=== PATIENT | female | born 1935 | race African-American/Black ===

== ENCOUNTER 2018-03-01 14:37 | Inpatient (IN) | payer MEDICARE, MEDICAID ==
[~2018-03-01] VITALS: Ht 162.6 cm; Wt 63.0 kg
[~2018-03-01 14:37] MED LIST: AMLO10TA80 PO; ATOR40TA70 PO; CHOL100046 PO; CLOP75TA33 PO; DIPH25CA83 PO; GABA-531 PO; P50 PO; SITA100T11 PO
[2018-03-01 16:26] LABS: BASOPHILS % 0.1 % (0.0-2.0); EOSINOPHILS % 0.1 % (0.0-5.0); HEMATOCRIT. 38.9 % (36.0-48.0); HEMOGLOBIN. 12.5 g/dL (12.0-16.0); LYMPHOCYTES % 7.5 % (20.0-50.0); MEAN CORPUSCULAR HEMOGLOBIN 26.7 pg (28.0-32.0); MEAN CORPUSCULAR VOLUME 83.3 fL (81.0-99.0); MEAN PLATELET VOLUME 7.5 fl (7.4-10.4); MONOCYTES % 2.7 % (2.0-8.0); NEUTROPHILS % 89.6 % (40.0-76.0); PLATELET 288 x1000/uL (130-400); RED BLOOD CELL COUNT 4.67 mill/uL (4.2-5.4); RED CELL DISTRIBUTION WIDTH 15.9 % (11.6-14.6)
[2018-03-01 16:32] LABS: CHLORIDE 111 mEq/L (98-107); INR 1.1; PROTHROMBIN TIME 11.2 sec (9.1-11.1)
[2018-03-01] MEDS ORDERED: SODIUM CHLORIDE 0.9% 1000ML BAG (SEPSIS BOLUS) IV ONE (18:00)
[2018-03-01 19:15] LABS: CLARITY URINE CLOUDY (CLEAR); COLOR URINE DARK YELLOW (YELLOW); KETONES URINE TRACE (NEGATIVE); LEUKOCYTE ESTERASE URINE TRACE (NEGATIVE); NITRITE URINE NEGATIVE (NEGATIVE); OCCULT BLOOD URINE 2+ (NEGATIVE); PH URINE 5.5 (4.5-8.0); PROTEIN URINE 1+ (NEGATIVE); SPECIFIC GRAVITY URINE 1.025 (1.005-1.030)
[2018-03-01] MEDS ORDERED: NITROGLYCERIN 0.4MG TABLET SL SL PRN (19:15)
[2018-03-01] MEDS ORDERED: TRAMADOL 50MG TABLET PO PRN (19:15)
[2018-03-01] MEDS ORDERED: IPRATROPIUM/ALBUTEROL 0.5-3(2.5)MG/3ML NEB INH PRN (19:15)
[2018-03-01] MEDS ORDERED: ACETAMINOPHEN 325MG TABLET PO PRN (19:15)
[2018-03-01] MEDS ORDERED: DEXTROSE 50% WATER 50ML SYRINGE IV PRN (19:15)
[2018-03-01] MEDS ORDERED: DIPHENHYDRAMINE 50MG/ML VIAL IV PRN (19:15)
[2018-03-01] MEDS ORDERED: NA PHOS,M-B/NA PHOS,DI-BA ENEMA 118ML PR PRN (19:15)
[2018-03-01] MEDS ORDERED: MAGNESIUM/ALUMINUM HYDROXIDE/SIMETHICONE 30ML UDC PO PRN (19:15)
[2018-03-01] MEDS ORDERED: GUAIFENESIN 200MG/10ML SUGAR FREE UDC PO PRN (19:15)
[2018-03-01] MEDS ORDERED: ONDANSETRON HCL 4MG/2ML VIAL IV PRN (19:15)
[2018-03-01] MEDS ORDERED: CLONIDINE 0.1MG TABLET PO PRN (19:15)
[2018-03-01] MEDS ORDERED: DOCUSATE SODIUM 100MG CAPSULE PO PRN (19:15)
[2018-03-01] MEDS ORDERED: ZOLPIDEM TARTRATE 5MG TABLET PO PRN (21:00)
[2018-03-01] MEDS: BLOOD SUGAR DIAGNOSTIC STRIP TEST SCH (21:00)
[2018-03-01] MEDS: INSULIN LISPRO 100 UNITS/ML SUBCUT SCH (21:00)
[2018-03-01] MEDS: SODIUM CHLORIDE 0.9% 1,000 ML IV SCH (21:24)
[2018-03-01] MEDS ORDERED: ONDANSETRON 4MG ODT PO PRN (21:30)
[2018-03-01] MEDS: ATORVASTATIN CALCIUM 40MG TABLET PO SCH (22:13)
[2018-03-01] MEDS: ASCORBIC ACID 500 MG TABLET PO SCH (22:13)
[2018-03-01] MEDS: ENOXAPARIN 30MG/0.3ML SYR SUBCUT SCH (22:14)
[2018-03-01] MEDS: FAMOTIDINE 20MG TABLET PO SCH (22:14)
[2018-03-01] MEDS ORDERED: CEFTRIAXONE 1 G PREMIX 50 ML IV SCH (22:30)
[2018-03-01] MEDS ORDERED: LEVOFLOXACIN 500MG PREMIX 100 ML IV NR (22:30)
[2018-03-01 22:45] VITALS: BP 105/60
[2018-03-01 23:15] LABS: CREATINE KINASE MB FRACTION 8.9 ng/mL (0.5-3.6)
[2018-03-02] VITALS: BP 95/64
[2018-03-02 04:44] VITALS: BP 94/60
[2018-03-02] MEDS: BLOOD SUGAR DIAGNOSTIC STRIP TEST SCH ×4 (06:38→20:46)
[2018-03-02] MEDS: INSULIN LISPRO 100 UNITS/ML SUBCUT SCH ×4 (07:43→20:47)
[2018-03-02 07:45] LABS: CREATINE KINASE MB FRACTION 5.4 ng/mL (0.5-3.6)
[2018-03-02 08:00] VITALS: BP 103/61
[2018-03-02] MEDS: CLOPIDOGREL 75MG TABLET PO SCH (08:38)
[2018-03-02] MEDS: ASCORBIC ACID 500 MG TABLET PO SCH ×2 (08:38→20:36)
[2018-03-02] MEDS: ZINC SULFATE 220 MG ( 50 ) CAPSULE PO SCH (08:38)
[2018-03-02] MEDS: ASPIRIN 325MG EC TABLET PO SCH (08:39)
[2018-03-02] MEDS: SODIUM CHLORIDE 0.9% 1,000 ML IV SCH (11:00)
[2018-03-02 12:00] VITALS: BP 101/53
[2018-03-02 13:34] LABS: HEMATOCRIT. 35.4 % (36.0-48.0); HEMOGLOBIN. 11.4 g/dL (12.0-16.0); MEAN CORPUSCULAR HEMOGLOBIN 26.9 pg (28.0-32.0); MEAN CORPUSCULAR VOLUME 83.5 fL (81.0-99.0); MEAN PLATELET VOLUME 7.7 fl (7.4-10.4); PLATELET 227 x1000/uL (130-400); RED BLOOD CELL COUNT 4.24 mill/uL (4.2-5.4)
[2018-03-02 13:40] LABS: CHLORIDE 116 mEq/L (98-107)
[2018-03-02 14:06] LABS: PLATELET ESTIMATE NORMAL
[2018-03-02 16:00] VITALS: BP 101/53
[2018-03-02 17:27] LABS: CHLORIDE 116 mEq/L (98-107)
[2018-03-02 20:00] VITALS: BP 104/56
[2018-03-02] MEDS: CEFTRIAXONE 1 G PREMIX 50 ML IV SCH (20:36)
[2018-03-02] MEDS: FAMOTIDINE 20MG TABLET PO SCH (20:36)
[2018-03-02] MEDS: ATORVASTATIN CALCIUM 40MG TABLET PO SCH (20:36)
[2018-03-02] MEDS: ENOXAPARIN 30MG/0.3ML SYR SUBCUT SCH (20:38)
[2018-03-02] MEDS: LEVOFLOXACIN 250MG PREMIX 50 ML IV SCH (21:13)
[2018-03-03] VITALS: BP 110/62
[2018-03-03 04:00] VITALS: BP 110/65
[2018-03-03] MEDS: SODIUM CHLORIDE 0.9% 1,000 ML IV SCH ×3 (06:08→22:07)
[2018-03-03] MEDS: BLOOD SUGAR DIAGNOSTIC STRIP TEST SCH ×4 (06:34→21:31)
[2018-03-03] MEDS: INSULIN LISPRO 100 UNITS/ML SUBCUT SCH ×4 (06:35→21:00)
[2018-03-03 07:27] VITALS: BP 117/60
[2018-03-03] MEDS: ASCORBIC ACID 500 MG TABLET PO SCH ×2 (09:00→21:06)
[2018-03-03] MEDS: ZINC SULFATE 220 MG ( 50 ) CAPSULE PO SCH (09:10)
[2018-03-03] MEDS: CLOPIDOGREL 75MG TABLET PO SCH (09:10)
[2018-03-03] MEDS: ASPIRIN 325MG EC TABLET PO SCH (09:10)
[2018-03-03] MEDS: MEGESTROL ACETATE 400 MG/10 ML UDC PO SCH ×2 (09:53→17:00)
[2018-03-03 11:57] VITALS: BP 119/64
[2018-03-03 15:45] VITALS: BP 121/65
[2018-03-03] MEDS: CEFTRIAXONE 1 G PREMIX 50 ML IV SCH (20:01)
[2018-03-03 20:35] VITALS: BP 114/58
[2018-03-03] MEDS: LEVOFLOXACIN 250MG PREMIX 50 ML IV SCH (21:03)
[2018-03-03] MEDS: ATORVASTATIN CALCIUM 40MG TABLET PO SCH (21:06)
[2018-03-03] MEDS: FAMOTIDINE 20MG TABLET PO SCH (21:06)
[2018-03-03] MEDS: ENOXAPARIN 30MG/0.3ML SYR SUBCUT SCH (21:08)
[2018-03-04 00:13] VITALS: BP 118/62
[2018-03-04 04:00] VITALS: BP 116/59
[2018-03-04] MEDS: BLOOD SUGAR DIAGNOSTIC STRIP TEST SCH ×4 (07:20→20:53)
[2018-03-04] MEDS: INSULIN LISPRO 100 UNITS/ML SUBCUT SCH ×4 (07:28→21:00)
[2018-03-04 08:00] VITALS: BP 111/59
[2018-03-04] MEDS: MEGESTROL ACETATE 400 MG/10 ML UDC PO SCH ×2 (08:50→17:00)
[2018-03-04] MEDS: ASPIRIN 325MG EC TABLET PO SCH (08:50)
[2018-03-04] MEDS: CLOPIDOGREL 75MG TABLET PO SCH (08:50)
[2018-03-04] MEDS: ZINC SULFATE 220 MG ( 50 ) CAPSULE PO SCH (08:50)
[2018-03-04] MEDS: ASCORBIC ACID 500 MG TABLET PO SCH ×2 (08:53→20:59)
[2018-03-04 12:00] VITALS: BP 130/58
[2018-03-04 16:00] VITALS: BP 133/61
[2018-03-04] MEDS: SODIUM CHLORIDE 0.9% 1,000 ML IV SCH ×2 (16:04→20:53)
[2018-03-04 20:10] VITALS: BP 120/60
[2018-03-04] MEDS: FAMOTIDINE 20MG TABLET PO SCH (20:52)
[2018-03-04] MEDS: CEFTRIAXONE 1 G PREMIX 50 ML IV SCH (20:52)
[2018-03-04] MEDS: ATORVASTATIN CALCIUM 40MG TABLET PO SCH (20:52)
[2018-03-04] MEDS: ENOXAPARIN 30MG/0.3ML SYR SUBCUT SCH (20:53)
[2018-03-04] MEDS: LEVOFLOXACIN 250MG PREMIX 50 ML IV SCH (22:07)
[2018-03-05] VITALS (8 sets, daily range): BP systolic 114–129; BP diastolic 56–76
[2018-03-05] MEDS: BLOOD SUGAR DIAGNOSTIC STRIP TEST SCH ×4 (06:27→21:00)
[2018-03-05] MEDS: INSULIN LISPRO 100 UNITS/ML SUBCUT SCH ×4 (07:50→21:00)
[2018-03-05] MEDS: ASCORBIC ACID 500 MG TABLET PO SCH ×2 (09:41→21:50)
[2018-03-05] MEDS: ZINC SULFATE 220 MG ( 50 ) CAPSULE PO SCH (09:41)
[2018-03-05] MEDS: ASPIRIN 325MG EC TABLET PO SCH (09:41)
[2018-03-05] MEDS: CLOPIDOGREL 75MG TABLET PO SCH (09:41)
[2018-03-05] MEDS: MEGESTROL ACETATE 400 MG/10 ML UDC PO SCH ×2 (09:41→17:21)
[2018-03-05] MEDS: METRONIDAZOLE 500 MG PREMIX 100 ML IV SCH ×2 (12:58→19:35)
[2018-03-05] MEDS: LACTULOSE 20G/30ML UDC PO SCH ×2 (14:00→22:00)
[2018-03-05] MEDS: SODIUM CHLORIDE 0.9% 1,000 ML IV SCH (17:49)
[2018-03-05] MEDS: CEFTRIAXONE 1 G PREMIX 50 ML IV SCH (20:55)
[2018-03-05] MEDS: LEVOFLOXACIN 250MG PREMIX 50 ML IV SCH (21:28)
[2018-03-05] MEDS: FAMOTIDINE 20MG TABLET PO SCH (21:50)
[2018-03-05] MEDS: ATORVASTATIN CALCIUM 40MG TABLET PO SCH (21:50)
[2018-03-05] MEDS: ENOXAPARIN 30MG/0.3ML SYR SUBCUT SCH (21:53)
[2018-03-06] MEDS: METRONIDAZOLE 500 MG PREMIX 100 ML IV SCH ×3 (02:59→20:35)
[2018-03-06 04:00] VITALS: BP_SYST 117; BP_SYST 122; BP_DIAS 63; BP_DIAS 69
[2018-03-06 06:50] LABS: HEMATOCRIT. 36.3 % (36.0-48.0); HEMOGLOBIN. 11.8 g/dL (12.0-16.0); MEAN CORPUSCULAR HEMOGLOBIN 27.1 pg (28.0-32.0); MEAN CORPUSCULAR VOLUME 83.2 fL (81.0-99.0); MEAN PLATELET VOLUME 7.8 fl (7.4-10.4); PLATELET 206 x1000/uL (130-400); RED BLOOD CELL COUNT 4.36 mill/uL (4.2-5.4); RED CELL DISTRIBUTION WIDTH 16.6 % (11.6-14.6)
[2018-03-06 07:01] LABS: CHLORIDE 119 mEq/L (98-107)
[2018-03-06] MEDS: BLOOD SUGAR DIAGNOSTIC STRIP TEST SCH ×4 (07:20→21:00)
[2018-03-06] MEDS: LACTULOSE 20G/30ML UDC PO SCH ×3 (07:32→21:16)
[2018-03-06] MEDS: INSULIN LISPRO 100 UNITS/ML SUBCUT SCH ×4 (07:50→21:00)
[2018-03-06 08:00] VITALS: BP 117/63
[2018-03-06] MEDS: ASCORBIC ACID 500 MG TABLET PO SCH ×2 (09:22→21:09)
[2018-03-06] MEDS: ZINC SULFATE 220 MG ( 50 ) CAPSULE PO SCH (09:22)
[2018-03-06] MEDS: CLOPIDOGREL 75MG TABLET PO SCH (09:22)
[2018-03-06] MEDS: ASPIRIN 325MG EC TABLET PO SCH (09:22)
[2018-03-06] MEDS: MEGESTROL ACETATE 400 MG/10 ML UDC PO SCH ×2 (09:23→17:00)
[2018-03-06] MEDS: SODIUM CHLORIDE 0.9% 1,000 ML IV SCH (09:23)
[2018-03-06 12:00] VITALS: BP 123/65
[2018-03-06] MEDS: DEXT 5% WATER + KCL 20MEQ/L 1,000 ML IV SCH (13:42)
[2018-03-06 13:52] LABS: NUCLEATED RED BLOOD CELLS 2 /100 WBC; PLATELET ESTIMATE NORMAL
[2018-03-06 16:00] VITALS: BP 125/125
[2018-03-06 20:00] VITALS: BP 124/66
[2018-03-06] MEDS: ENOXAPARIN 30MG/0.3ML SYR SUBCUT SCH (21:10)
[2018-03-06] MEDS: ATORVASTATIN CALCIUM 40MG TABLET PO SCH (21:10)
[2018-03-06] MEDS: FAMOTIDINE 20MG TABLET PO SCH (21:10)
[2018-03-06] MEDS: CEFTRIAXONE 1 G PREMIX 50 ML IV SCH (21:30)
[2018-03-06] MEDS: LEVOFLOXACIN 250MG PREMIX 50 ML IV SCH (22:28)
[2018-03-07] VITALS: BP 109/66
[2018-03-07 04:00] VITALS: BP 119/64
[2018-03-07] MEDS: METRONIDAZOLE 500 MG PREMIX 100 ML IV SCH ×3 (04:44→18:56)
[2018-03-07] MEDS: DEXT 5% WATER + KCL 20MEQ/L 1,000 ML IV SCH ×2 (05:44→20:20)
[2018-03-07] MEDS: LACTULOSE 20G/30ML UDC PO SCH ×3 (05:47→21:31)
[2018-03-07] MEDS: BLOOD SUGAR DIAGNOSTIC STRIP TEST SCH ×4 (07:28→21:26)
[2018-03-07] MEDS: INSULIN LISPRO 100 UNITS/ML SUBCUT SCH ×4 (07:52→21:00)
[2018-03-07] MEDS: ASCORBIC ACID 500 MG TABLET PO SCH ×2 (07:52→20:19)
[2018-03-07] MEDS: ZINC SULFATE 220 MG ( 50 ) CAPSULE PO SCH (07:52)
[2018-03-07] MEDS: ASPIRIN 325MG EC TABLET PO SCH (07:52)
[2018-03-07] MEDS: MEGESTROL ACETATE 400 MG/10 ML UDC PO SCH ×2 (07:52→17:00)
[2018-03-07] MEDS: CLOPIDOGREL 75MG TABLET PO SCH (07:52)
[2018-03-07 08:52] VITALS: BP 123/66
[2018-03-07 09:52] LABS: EOSINOPHILS % 1.1 % (0.0-5.0); HEMATOCRIT. 35.2 % (36.0-48.0); HEMOGLOBIN. 11.5 g/dL (12.0-16.0); LYMPHOCYTES % 8.8 % (20.0-50.0); MEAN CORPUSCULAR HEMOGLOBIN 27.2 pg (28.0-32.0); MEAN PLATELET VOLUME 7.9 fl (7.4-10.4); MONOCYTES % 1.8 % (2.0-8.0); NEUTROPHILS % 88.3 % (40.0-76.0); PLATELET 208 x1000/uL (130-400); RED BLOOD CELL COUNT 4.24 mill/uL (4.2-5.4); RED CELL DISTRIBUTION WIDTH 16.3 % (11.6-14.6)
[2018-03-07 10:14] LABS: CHLORIDE 117 mEq/L (98-107)
[2018-03-07 12:49] VITALS: BP 130/60
[2018-03-07 16:58] VITALS: BP 128/68
[2018-03-07 20:00] VITALS: BP 104/60
[2018-03-07] MEDS: CEFTRIAXONE 1 G PREMIX 50 ML IV SCH (20:19)
[2018-03-07] MEDS: ATORVASTATIN CALCIUM 40MG TABLET PO SCH (20:19)
[2018-03-07] MEDS: FAMOTIDINE 20MG TABLET PO SCH (20:19)
[2018-03-07] MEDS: LEVOFLOXACIN 250MG PREMIX 50 ML IV SCH (21:31)
[2018-03-08] VITALS (7 sets, daily range): BP systolic 103–145; BP diastolic 57–93
[2018-03-08] MEDS: METRONIDAZOLE 500 MG PREMIX 100 ML IV SCH ×3 (03:35→18:39)
[2018-03-08] MEDS: LACTULOSE 20G/30ML UDC PO SCH ×3 (06:00→21:48)
[2018-03-08] MEDS: INSULIN LISPRO 100 UNITS/ML SUBCUT SCH ×4 (07:50→21:00)
[2018-03-08] MEDS: BLOOD SUGAR DIAGNOSTIC STRIP TEST SCH ×4 (07:53→21:48)
[2018-03-08] MEDS: ASCORBIC ACID 500 MG TABLET PO SCH ×2 (09:00→21:00)
[2018-03-08] MEDS: MEGESTROL ACETATE 400 MG/10 ML UDC PO SCH ×2 (09:00→17:00)
[2018-03-08] MEDS: ZINC SULFATE 220 MG ( 50 ) CAPSULE PO SCH (09:00)
[2018-03-08] MEDS ORDERED: KCL 20MEQ/100ML PREMIX 100 ML IV NR (12:00)
[2018-03-08] MEDS: DEXT 5% WATER + KCL 20MEQ/L 1,000 ML IV SCH (14:50)
[2018-03-08] MEDS ORDERED: MIDAZOLAM HCL 5 MG/5 ML VIAL ONE (16:01)
[2018-03-08] MEDS ORDERED: FENTANYL CITRATE/PF 50MCG/ML 2ML VIAL ONE (16:02)
[2018-03-08] MEDS ORDERED: MIDAZOLAM HCL 5 MG/5 ML VIAL IV PRN (17:01)
[2018-03-08] MEDS: CEFTRIAXONE 1 G PREMIX 50 ML IV SCH (20:33)
[2018-03-08] MEDS: FAMOTIDINE 20MG TABLET PO SCH (21:00)
[2018-03-08] MEDS: ATORVASTATIN CALCIUM 40MG TABLET PO SCH (21:00)
[2018-03-08] MEDS: LEVOFLOXACIN 250MG PREMIX 50 ML IV SCH (21:47)
[2018-03-09 00:22] VITALS: BP 126/40
[2018-03-09] MEDS ORDERED: MAGNESIUM/ALUMINUM HYDROXIDE/SIMETHICONE 30ML UDC GT PRN (03:00)
[2018-03-09] MEDS ORDERED: GUAIFENESIN 200MG/10ML SUGAR FREE UDC GT PRN (03:15)
[2018-03-09] MEDS ORDERED: ASCORBIC ACID 500 MG TABLET GT SCH ×2 (03:21→09:00)
[2018-03-09] MEDS: METRONIDAZOLE 500 MG PREMIX 100 ML IV SCH ×2 (03:32→11:57)
[2018-03-09 04:32] VITALS: BP 95/45
[2018-03-09] MEDS ORDERED: ONDANSETRON HCL 4MG TABLET GT PRN (05:30)
[2018-03-09] MEDS: LACTULOSE 20G/30ML UDC GT SCH ×3 (06:18→21:06)
[2018-03-09] MEDS: DEXT 5% WATER + KCL 20MEQ/L 1,000 ML IV SCH ×2 (06:18→11:57)
[2018-03-09] MEDS: BLOOD SUGAR DIAGNOSTIC STRIP TEST SCH ×4 (06:35→20:37)
[2018-03-09] MEDS ORDERED: CLONIDINE 0.1MG TABLET GT PRN (07:15)
[2018-03-09 07:32] LABS: HEMATOCRIT. 33.5 % (36.0-48.0); HEMOGLOBIN. 10.9 g/dL (12.0-16.0); MEAN CORPUSCULAR HEMOGLOBIN 26.9 pg (28.0-32.0); MEAN PLATELET VOLUME 8.3 fl (7.4-10.4); PLATELET 179 x1000/uL (130-400); RED BLOOD CELL COUNT 4.04 mill/uL (4.2-5.4); RED CELL DISTRIBUTION WIDTH 16.5 % (11.6-14.6)
[2018-03-09 07:33] LABS: CHLORIDE 115 mEq/L (98-107)
[2018-03-09] MEDS: INSULIN LISPRO 100 UNITS/ML SUBCUT SCH ×4 (07:50→20:38)
[2018-03-09 08:05] VITALS: BP 103/67
[2018-03-09] MEDS: ASCORBIC ACID 500 MG TABLET GT SCH (09:25)
[2018-03-09] MEDS: CLOPIDOGREL 75MG TABLET GT SCH (09:25)
[2018-03-09] MEDS: DOCUSATE SODIUM SUGAR FREE 100MG/10ML UDC GT SCH (09:25)
[2018-03-09] MEDS: ZINC SULFATE 220 MG ( 50 ) CAPSULE GT SCH (09:26)
[2018-03-09 12:00] VITALS: BP 104/65
[2018-03-09] MEDS: METRONIDAZOLE 500MG TABLET GT SCH ×2 (13:26→21:06)
[2018-03-09 16:00] VITALS: BP 106/63
[2018-03-09 19:28] LABS: PLATELET ESTIMATE NORMAL
[2018-03-09 20:00] VITALS: BP 102/57
[2018-03-09] MEDS: FAMOTIDINE 20MG TABLET GT SCH (20:36)
[2018-03-09] MEDS: ATORVASTATIN CALCIUM 40MG TABLET GT SCH (20:37)
[2018-03-10 00:02] VITALS: BP 100/50
[2018-03-10 04:00] VITALS: BP 101/60
[2018-03-10] MEDS: BLOOD SUGAR DIAGNOSTIC STRIP TEST SCH ×4 (06:21→21:13)
[2018-03-10] MEDS: LACTULOSE 20G/30ML UDC GT SCH ×3 (06:21→21:20)
[2018-03-10] MEDS: METRONIDAZOLE 500MG TABLET GT SCH ×3 (06:21→21:20)
[2018-03-10 06:37] LABS: HEMATOCRIT. 33.9 % (36.0-48.0); HEMOGLOBIN. 11.4 g/dL (12.0-16.0); MEAN CORPUSCULAR HEMOGLOBIN 27.6 pg (28.0-32.0); MEAN CORPUSCULAR VOLUME 81.8 fL (81.0-99.0); MEAN PLATELET VOLUME 8.2 fl (7.4-10.4); PLATELET 162 x1000/uL (130-400); RED BLOOD CELL COUNT 4.14 mill/uL (4.2-5.4); RED CELL DISTRIBUTION WIDTH 16.8 % (11.6-14.6)
[2018-03-10 06:53] LABS: CHLORIDE 119 mEq/L (98-107)
[2018-03-10] MEDS: INSULIN LISPRO 100 UNITS/ML SUBCUT SCH ×4 (07:50→21:21)
[2018-03-10 08:00] VITALS: BP 109/65
[2018-03-10] MEDS: ZINC SULFATE 220 MG ( 50 ) CAPSULE GT SCH (09:58)
[2018-03-10] MEDS: DOCUSATE SODIUM SUGAR FREE 100MG/10ML UDC GT SCH (09:58)
[2018-03-10] MEDS: ASCORBIC ACID 500 MG TABLET GT SCH (09:58)
[2018-03-10] MEDS: CLOPIDOGREL 75MG TABLET GT SCH (09:58)
[2018-03-10 11:11] LABS: PLATELET ESTIMATE NORMAL
[2018-03-10] MEDS ORDERED: SODIUM CHLORIDE 0.9% 10ML VIAL ONE (11:38)
[2018-03-10 12:00] VITALS: BP 110/62
[2018-03-10 16:00] VITALS: BP 103/57
[2018-03-10 20:00] VITALS: BP 100/62
[2018-03-10] MEDS: ATORVASTATIN CALCIUM 40MG TABLET GT SCH (21:20)
[2018-03-10] MEDS: FAMOTIDINE 20MG TABLET GT SCH (21:20)
[2018-03-11] VITALS: BP 101/60
[2018-03-11 04:00] VITALS: BP 103/60
[2018-03-11] MEDS: METRONIDAZOLE 500MG TABLET GT SCH ×3 (05:02→22:24)
[2018-03-11] MEDS: LACTULOSE 20G/30ML UDC GT SCH ×3 (05:02→22:25)
[2018-03-11] MEDS: ACETAMINOPHEN 325MG TABLET GT PRN (05:05)
[2018-03-11] MEDS: BLOOD SUGAR DIAGNOSTIC STRIP TEST SCH ×4 (06:50→21:00)
[2018-03-11] MEDS: INSULIN LISPRO 100 UNITS/ML SUBCUT SCH ×4 (06:51→22:27)
[2018-03-11] MEDS: CLOPIDOGREL 75MG TABLET GT SCH (08:28)
[2018-03-11] MEDS: DOCUSATE SODIUM SUGAR FREE 100MG/10ML UDC GT SCH (08:28)
[2018-03-11] MEDS: ASCORBIC ACID 500 MG TABLET GT SCH (08:28)
[2018-03-11] MEDS: ZINC SULFATE 220 MG ( 50 ) CAPSULE GT SCH (08:28)
[2018-03-11 08:34] VITALS: BP 103/67
[2018-03-11 12:09] VITALS: BP 107/68
[2018-03-11] MEDS: METOCLOPRAMIDE HCL 10MG/2ML VIAL IV SCH (19:05)
[2018-03-11 20:00] VITALS: BP 100/60
[2018-03-11] MEDS: FAMOTIDINE 20MG TABLET GT SCH (22:24)
[2018-03-11] MEDS: ATORVASTATIN CALCIUM 40MG TABLET GT SCH (22:25)
[2018-03-12] VITALS (16 sets, daily range): BP systolic 81–106; BP diastolic 48–64
[2018-03-12] MEDS: METOCLOPRAMIDE HCL 10MG/2ML VIAL IV SCH ×4 (00:03→18:00)
[2018-03-12] MEDS: METRONIDAZOLE 500MG TABLET GT SCH ×3 (06:00→22:00)
[2018-03-12] MEDS: LACTULOSE 20G/30ML UDC GT SCH ×3 (06:00→22:00)
[2018-03-12] MEDS: BLOOD SUGAR DIAGNOSTIC STRIP TEST SCH ×4 (07:20→21:00)
[2018-03-12] MEDS: ASCORBIC ACID 500 MG TABLET GT SCH (08:30)
[2018-03-12] MEDS: CLOPIDOGREL 75MG TABLET GT SCH (08:30)
[2018-03-12] MEDS: ZINC SULFATE 220 MG ( 50 ) CAPSULE GT SCH (08:30)
[2018-03-12] MEDS: DOCUSATE SODIUM SUGAR FREE 100MG/10ML UDC GT SCH (08:31)
[2018-03-12] MEDS: INSULIN LISPRO 100 UNITS/ML SUBCUT SCH ×4 (08:47→21:00)
[2018-03-12] MEDS ORDERED: METOPROLOL TARTRATE 5MG/5ML VIAL IV NR (09:15)
[2018-03-12] MEDS ORDERED: DEXT 5%/0.45% NACL 1000ML 1,000 ML IV SCH (09:15)
[2018-03-12 10:59] LABS: BG BASE EXCESS -5.3 mmol/L (-2.0-2.0); BG CARBOXYHEMOGLOBIN 0.6 % (0.5-1.5); BG FRACTION INSPIRED OXYGEN 28; BG HCO3 ACT 16.5 mmol/L (22.0-26.0); BG METHEMOGLOBIN 0.3 % (0.0-1.5); BG OXYGEN SATURATION 93.9 % (92.0-98.5); BG OXYHEMOGLOBIN 93.1 % (94.0-97.0); BG PCO2 22.7 mmHg (35.0-45.0); BG PH 7.479 (7.350-7.450); BG PO2 70.2 mmHg (75.0-100.0); BG SAMPLE SITE RIGHT BRACHIAL; BG TOTAL HEMOGLOBIN 11.9 g/dL (12.0-18.0); BG VENT MODE NASAL CANNULA
[2018-03-12] MEDS: ACETAMINOPHEN 325MG TABLET GT PRN ×2 (11:22→18:58)
[2018-03-12 12:37] LABS: HEMATOCRIT. 31.6 % (36.0-48.0); HEMOGLOBIN. 10.7 g/dL (12.0-16.0); MEAN CORPUSCULAR HEMOGLOBIN 27.2 pg (28.0-32.0); MEAN CORPUSCULAR VOLUME 80.5 fL (81.0-99.0); MEAN PLATELET VOLUME 8.2 fl (7.4-10.4); PLATELET 103 x1000/uL (130-400); RED BLOOD CELL COUNT 3.93 mill/uL (4.2-5.4); RED CELL DISTRIBUTION WIDTH 16.7 % (11.6-14.6)
[2018-03-12 12:48] LABS: AMMONIA 16 uMol/L (<32); CHLORIDE 122 mEq/L (98-107)
[2018-03-12 13:23] LABS: PLATELET ESTIMATE DECREASED
[2018-03-12] MEDS ORDERED: MORPHINE SULFATE 4 MG/ML CPJ (NOT FOR IM USE) IV PRN (13:45)
[2018-03-12] MEDS: DEXTROSE 5% WATER 1,000 ML IV SCH (14:03)
[2018-03-12] MEDS ORDERED: LEVOFLOXACIN 500MG PREMIX 100 ML IV SCH (15:00)
[2018-03-12] MEDS: FAMOTIDINE 20MG TABLET GT SCH (21:00)
[2018-03-12] MEDS: ATORVASTATIN CALCIUM 40MG TABLET GT SCH (21:00)
[2018-03-12] MEDS ORDERED: SODIUM CHLORIDE 0.9% 500 ML IV NR (22:45)
[2018-03-12 23:02] LABS: BG BASE EXCESS -7.6 mmol/L (-2.0-2.0); BG CARBOXYHEMOGLOBIN 0.7 % (0.5-1.5); BG DEOXYHEMOGLOBIN 11.3 % (0.0-5.0); BG FRACTION INSPIRED OXYGEN 28; BG HCO3 ACT 13.1 mmol/L (22.0-26.0); BG METHEMOGLOBIN 0.3 % (0.0-1.5); BG OXYGEN SATURATION 88.6 % (92.0-98.5); BG OXYHEMOGLOBIN 87.7 % (94.0-97.0); BG PCO2 18.1 mmHg (35.0-45.0); BG PH 7.479 (7.350-7.450); BG PO2 54.5 mmHg (75.0-100.0); BG SAMPLE SITE RIGHT BRACHIAL; BG TOTAL HEMOGLOBIN 14.1 g/dL (12.0-18.0); BG VENT MODE NASAL CANNULA
[2018-03-13] VITALS (49 sets, daily range): BP systolic 37–153; BP diastolic 15–91
[2018-03-13] MEDS ORDERED: PHENYLEPHRINE 20 MG in DEXT 5% WATER 248 ML IV PRN (00:30)
[2018-03-13] MEDS: METOCLOPRAMIDE HCL 10MG/2ML VIAL IV SCH ×2 (00:43→05:12)
[2018-03-13] MEDS ORDERED: PHENYLEPHRINE 40 MG in DEXT 5% WATER 496 ML IV PRN (05:00)
[2018-03-13] MEDS ORDERED: PHENYLEPHRINE 40 MG in DEXT 5% WATER 500 ML IV PRN (05:00)
[2018-03-13] MEDS: METRONIDAZOLE 500MG TABLET GT SCH (05:12)
[2018-03-13] MEDS: LACTULOSE 20G/30ML UDC GT SCH (05:13)
[2018-03-13] MEDS ORDERED: INSULIN LISPRO 100 UNITS/ML SUBCUT SCH (06:00)
[2018-03-13] MEDS ORDERED: BLOOD SUGAR DIAGNOSTIC STRIP TEST SCH (06:00)
[2018-03-13] MEDS ORDERED: NOREPINEPHRINE 16 MG in DEXT 5% WATER 484 ML IV PRN (06:15)
[2018-03-13 06:33] LABS: BG BASE EXCESS -17.6 mmol/L (-2.0-2.0); BG CARBOXYHEMOGLOBIN 0.9 % (0.5-1.5); BG DEOXYHEMOGLOBIN 58.5 % (0.0-5.0); BG HCO3 ACT 15.7 mmol/L (22.0-26.0); BG METHEMOGLOBIN 0.3 % (0.0-1.5); BG OXYGEN SATURATION 40.8 % (92.0-98.5); BG OXYHEMOGLOBIN 40.3 % (94.0-97.0); BG PCO2 89.1 mmHg (35.0-45.0); BG PH 6.864 (7.350-7.450); BG PO2 38.5 mmHg (75.0-100.0); BG SAMPLE SITE RIGHT BRACHIAL; BG TOTAL HEMOGLOBIN 9.1 g/dL (12.0-18.0); BG VENT MODE MASK - NRB
[2018-03-13 07:44] LABS: BG BASE EXCESS -19.1 mmol/L (-2.0-2.0); BG CARBOXYHEMOGLOBIN 0.3 % (0.5-1.5); BG DEOXYHEMOGLOBIN 15.4 % (0.0-5.0); BG HCO3 ACT 10.3 mmol/L (22.0-26.0); BG METHEMOGLOBIN 0.4 % (0.0-1.5); BG OXYGEN SATURATION 84.5 % (92.0-98.5); BG OXYHEMOGLOBIN 83.9 % (94.0-97.0); BG PCO2 38.4 mmHg (35.0-45.0); BG PH 7.045 (7.350-7.450); BG PO2 69.1 mmHg (75.0-100.0); BG SAMPLE SITE RIGHT BRACHIAL; BG TIDAL VOLUME(mL) 500 mL; BG TOTAL HEMOGLOBIN 8.8 g/dL (12.0-18.0); BG VENT MODE VENT - A/C; BG VENT RATE 14 set
[2018-03-13] MEDS ORDERED: VASOPRESSIN 10 UNIT in SODIUM CHLORIDE 0.9% 99.5 ML IV PRN (07:45)
[2018-03-13] MEDS ORDERED: SODIUM BICARBONATE 8.4% 1 MEQ/ML 50ML SYR IV SCH (08:30)
[2018-03-13] MEDS: DOCUSATE SODIUM SUGAR FREE 100MG/10ML UDC GT SCH (08:39)
[2018-03-13] MEDS: CLOPIDOGREL 75MG TABLET GT SCH (08:39)
[2018-03-13] MEDS: ZINC SULFATE 220 MG ( 50 ) CAPSULE GT SCH (08:39)
[2018-03-13] MEDS: ASCORBIC ACID 500 MG TABLET GT SCH (08:39)
[2018-03-13] MEDS: DEXTROSE 5% WATER 1,000 ML IV SCH (08:41)
[2018-03-13 08:48] LABS: HEMATOCRIT. 26.8 % (36.0-48.0); HEMOGLOBIN. 8.4 g/dL (12.0-16.0); MEAN CORPUSCULAR HEMOGLOBIN 27.7 pg (28.0-32.0); MEAN CORPUSCULAR VOLUME 88.3 fL (81.0-99.0); RED BLOOD CELL COUNT 3.04 mill/uL (4.2-5.4); RED CELL DISTRIBUTION WIDTH 18.1 % (11.6-14.6)
[2018-03-13] MEDS ORDERED: NOREPINEPHRINE 16 MG in DEXT 5% WATER 234 ML IV PRN (09:00)
[2018-03-13] MEDS ORDERED: PHENYLEPHRINE 40 MG in DEXT 5% WATER 246 ML IV PRN (09:00)
[2018-03-13] MEDS ORDERED: SODIUM BICARBONATE 150 MEQ in DEXTROSE 5% WATER 850 ML IV SCH (09:00)
[2018-03-13] MEDS ORDERED: EPINEPHRINE 1 MG in SODIUM CHLORIDE 0.9% 249 ML IV PRN (09:45)
[2018-03-13 10:06] LABS: PLATELET 32 x1000/uL (130-400)
[2018-03-13 10:16] LABS: NUCLEATED RED BLOOD CELLS 4 /100 WBC; PLATELET ESTIMATE MARKEDLY DECREASED
[2018-03-13] MEDS ORDERED: CALCIUM CHLORIDE 1GM/10ML SYR IV ONE (14:54)
[2018-03-13] MEDS ORDERED: EPINEPHRINE 0.1MG/ML (1:10,000) 10ML SYR ONE (14:54)
[2018-03-13] MEDS ORDERED: SODIUM BICARBONATE 7.5% 0.9 MEQ/ML 50ML SYR IV ONE (14:54)
[2018-03-13] MEDS ORDERED: LEVOFLOXACIN 250MG PREMIX 50 ML IV SCH (15:30)
== END 2018-03-13 10:30 | disposition expired | DRG 871 ==
LOC: ER 14:45 → 6WST 19:07 → EDBEDREQSVC 19:08 → EDBEDREQ 19:08 → ENRESERV 19:23 → 6WST 21:26 → 3WST 03-12 17:19 → CVICU 03-12 23:05
PROVIDERS: ADMIT Internal Medicine; ATTEND Internal Medicine
PROC: 0DH63UZ Insertion of Feeding Device into Stomach, Percutaneous Approach (ICD-10-PCS; principal; 2018-03-08 16:00)
PROC: 0BH17EZ Insertion of Endotracheal Airway into Trachea, Via Natural or Artificial Opening (ICD-10-PCS; 2018-03-13)
PROC: 5A12012 Performance of Cardiac Output, Single, Manual (ICD-10-PCS; 2018-03-13)
PROC: 06HM33Z Insertion of Infusion Device into Right Femoral Vein, Percutaneous Approach (ICD-10-PCS; 2018-03-13)
PROC: 5A1935Z Respiratory Ventilation, Less than 24 Consecutive Hours (ICD-10-PCS; 2018-03-13)
DX: A41.9 Sepsis, unspecified organism (principal); G92 Toxic encephalopathy; E43 Unspecified severe protein-calorie malnutrition; J96.01 Acute respiratory failure with hypoxia; N17.0 Acute kidney failure with tubular necrosis; N39.0 Urinary tract infection, site not specified; E87.0 Hyperosmolality and hypernatremia; K57.32 Diverticulitis of large intestine without perforation or abscess without bleeding; I46.9 Cardiac arrest, cause unspecified; J44.9 Chronic obstructive pulmonary disease, unspecified; E83.52 Hypercalcemia; L89.150 Pressure ulcer of sacral region, unstageable; E11.22 Type 2 diabetes mellitus with diabetic chronic kidney disease; E11.51 Type 2 diabetes mellitus with diabetic peripheral angiopathy without gangrene; D64.9 Anemia, unspecified; D69.6 Thrombocytopenia, unspecified; E78.00 Pure hypercholesterolemia, unspecified; E78.5 Hyperlipidemia, unspecified; E87.6 Hypokalemia; F03.90 Unspecified dementia, unspecified severity, without behavioral disturbance, psychotic disturbance, mood disturbance, and anxiety; N18.9 Chronic kidney disease, unspecified; R62.7 Adult failure to thrive; I13.10 Hypertensive heart and chronic kidney disease without heart failure, with stage 1 through stage 4 chronic kidney disease, or unspecified chronic kidney disease; I25.10 Atherosclerotic heart disease of native coronary artery without angina pectoris; K29.70 Gastritis, unspecified, without bleeding; K44.9 Diaphragmatic hernia without obstruction or gangrene; Z66 Do not resuscitate; Z79.4 Long term (current) use of insulin; Z95.1 Presence of aortocoronary bypass graft; Z68.23 Body mass index [BMI] 23.0-23.9, adult; Z95.5 Presence of coronary angioplasty implant and graft; Z88.2 Allergy status to sulfonamides; Z88.8 Allergy status to other drugs, medicaments and biological substances; Z91.041 Radiographic dye allergy status; Z79.899 Other long term (current) drug therapy
CPT/HCPCS: 36415; 36600; 51702; 70450; 70551; 71045; 74176; 80048; 80053; 80061; 81003; 82140; 82375; 82550; 82553; 82805; 82962; 83036; 83605; 83970; 84134; 84484; 85025; 85610; 87040; 87077; 87086; 87106; 87186; 93005; 93306; 93970; 94002; 96360; 99285; A4216; A6261; C1893; J0696; J1650; J1815; J1956; J2250; J2270; J2370; J2765; J3010; J3480; J3490; J7030; J7040; J7050; J7060; J7070; J7120; A4315